=== PATIENT | male | born 1980 | race American Indian/Alaskan Native ===

== ENCOUNTER 2017-10-06 12:01 | Emergency (ER) | payer MEDICAID, OTHER ==
[2017-10-06 12:11] VITALS: BP 147/99
[2017-10-06 13:03] LABS: CHLORIDE,CL 106 mmol/L (101-111); SODIUM,NA 140 mmol/L (135-145)
--- NOTE | 2017-10-06 13:04 | EDM.PDOC ---
ED HPI GENERAL MEDICAL PROBLEM - General Chief Complaint: Respiratory Problem Stated Complaint: LUNGS FEEL WEIRD Time Seen by Provider: 10/06/17 12:50 Source of Information: Reports: Patient History Limitations: Reports: No Limitations - History of Present Illness INITIAL COMMENTS - FREE TEXT/NARRATIVE: This 36 yo male patient reports to the ED due to his "lungs feeling different" for the past week. The patient reports he works at [employer] and gets hot all day long. The patient reports he has been feeling short of breath throughout the week. The patient reports he has not been seen by his primary care facility for his current symptoms. Duration: Week(s): (1), Constant Location: Reports: Chest Quality: Reports: Other Severity: Mild Improves with: Reports: None Worsens with: Reports: None Associated Symptoms: Reports: No Other Symptoms - Related Data Allergies Allergy/AdvReac Type Severity Reaction Status Date / Time No Known Allergies Allergy Verified 10/06/17 12:08 Home Meds: Home Meds Lisinopril [Lisinopril] 5 mg PO DAILY 04/27/15 [History] Hydrochlorothiazide 25 mg PO DAILY 10/06/17 [History] Past Medical History Cardiovascular History: Reports: Hypertension Gastrointestinal History: Reports: Other (See Below) Other Gastrointestinal History: some type of hernia surgery as a baby Social & Family History - Family History Family Medical History: Noncontributory - Tobacco Use Smoking Status *Q: Never Smoker Second Hand Smoke Exposure: No - Caffeine Use Caffeine Use: Reports: Coffee - Alcohol Use Days Per Week of Alcohol Use: 1 Number of Drinks Per Day: 6 Total Drinks Per Week: 6 - Recreational Drug Use Recreational Drug Use: No - Living Situation & Occupation Living situation: Reports: with Family ED ROS GENERAL - Review of Systems Review Of Systems: ROS reveals no pertinent complaints other than HPI. ED EXAM, GENERAL - Physical Exam Exam: See Below Exam Limited By: No Limitations General Appearance: Alert, WD/WN, No Apparent Distress, Obese Eye Exam: Bilateral Eye: EOMI, Normal Inspection, PERRL Ears: Normal External Exam, Normal Canal, Hearing Grossly Normal, Normal TMs Nose: Normal Inspection, Normal Mucosa, No Blood Throat/Mouth: Normal Inspection, Normal Lips, Normal Teeth, Normal Gums, Normal Oropharynx, Normal Voice, No Airway Compromise Head: Atraumatic, Normocephalic Neck: Normal Inspection, Supple, Non-Tender, Full Range of Motion Respiratory/Chest: No Respiratory Distress, Lungs Clear, Normal Breath Sounds, No Accessory Muscle Use, Chest Non-Tender Cardiovascular: Normal Peripheral Pulses, Regular Rate, Rhythm, No Edema, No Gallop, No JVD, No Murmur, No Rub GI/Abdominal: Normal Bowel Sounds, Soft, Non-Tender, No Organomegaly, No Distention, No Abnormal Bruit, No Mass (Male) Exam: Deferred Rectal (Males) Exam: Deferred Back Exam: Normal Inspection, Full Range of Motion, NT Extremities: Normal Inspection, Normal Range of Motion, Non-Tender, Normal Capillary Refill, No Pedal Edema Neurological: Alert, Oriented, CN II-XII Intact, Normal Cognition, Normal Gait, Normal Reflexes, No Motor/Sensory Deficits Psychiatric: Normal Affect, Normal Mood Skin Exam: Warm, Dry, Intact, Normal Color, No Rash Lymphatic: No Adenopathy Course - Vital Signs Last Recorded V/S: Last Vital Signs Temp 35.5 C 10/06/17 12:08 Pulse 66 10/06/17 12:08 Resp 18 10/06/17 12:08 BP 147/99 H 10/06/17 12:08 Pulse Ox 100 10/06/17 12:08 - Orders/Labs/Meds Orders: Active Orders 24 hr Category Date Time Status Chest 2V [CR] Urgent Exams 10/06/17 12:29 Ordered CULTURE STREP A CONFIRMATION [] Stat Lab 10/06/17 12:33 Results STREP SCRN A RAPID W CULT CONF [] Stat Lab 10/06/17 12:33 Results Labs: Laboratory Tests 10/06/17 10/06/17 Range/Units 12:37 12:37 WBC 6.9 (5.0-10.0) 10^3/uL RBC 5.01 (4.6-6.2) 10^6/uL Hgb 14.1 (14.0-18.0) g/dL Hct 41.3 (40.0-54.0) % MCV 82.4 D (80-100) fL MCH 28.1 (27.0-34.0) pg MCHC 34.1 (33.0-35.0) g/dL Plt Count 204 (150-450) 10^3/uL Neut % (Auto) 55.1 (42.2-75.2) % Lymph % (Auto) 33.4 (20.5-50.1) % Dukes % (Auto) 7.3 (2-8) % Eos % (Auto) 3.9 H (1.0-3.0) % Baso % (Auto) 0.3 (0.0-1.0) % Sodium 140 (135-145) mmol/L Potassium 4.6 (3.6-5.0) mmol/L Chloride 106 (101-111) mmol/L Carbon Dioxide 26.0 D (21.0-31.0) mmol/L Anion Gap 12.6 BUN 11 (7-18) mg/dL Creatinine 0.6 (0.6-1.3) mg/dL Est Cr Clr Drug Dosing 174.05 mL/min Estimated GFR (MDRD) > 60 BUN/Creatinine Ratio 18.33 Glucose 109 H (74-105) mg/dL Calcium 8.9 (8.4-10.2) mg/dl Total Bilirubin 0.7 (0.2-1.0) mg/dL AST 70 H (10-42) IU/L ALT 61 H (10-60) IU/L Alkaline Phosphatase 133 H (42-121) IU/L Total Protein 8.2 (6.7-8.2) g/dl Albumin 3.9 (3.2-5.5) g/dl Globulin 4.3 Albumin/Globulin Ratio 0.91 Departure - Departure Time of Disposition: 13:08 Disposition: Home, Self-Care 01 Condition: Fair Clinical Impression: Viral URI - Discharge Information Instructions: Upper Respiratory Infection, Adult, [id number] Forms: ED Department Discharge Care Plan Goals: The patient was advised of the examination and lab results during the visit. The patient was encouraged to follow-up with his primary care facility or return to the emergency department for any additional symptoms or concerns. - My Orders Last 24 Hours: My Active Orders 10/06/17 12:29 Chest 2V [CR] Urgent 10/06/17 12:33 CULTURE STREP A CONFIRMATION [RM] Stat STREP SCRN A RAPID W CULT CONF [RM] Stat - Assessment/Plan Last 24 Hours: My Active Orders 10/06/17 12:29 Chest 2V [CR] Urgent 10/06/17 12:33 CULTURE STREP A CONFIRMATION [RM] Stat STREP SCRN A RAPID W CULT CONF [RM] Stat
== END 2017-10-06 13:30 | disposition home or self-care (01) ==
LOC: DL.ED 12:01
DX: J06.9 Acute upper respiratory infection, unspecified (principal); I10 Essential (primary) hypertension; Z79.899 Other long term (current) drug therapy
CPT/HCPCS: 36415; 80053; 85025; 87081; 87430; 87804; 99283

== ENCOUNTER 2025-01-26 11:37 | Emergency (ER) | payer BC, MEDICAID ==
[2025-01-26 12:54] LABS: BASOPHILS PERCENT AUTO 0.1 % (0.0-1.0); EOSINOPHILS PERCENT AUTO 1.6 % (1.0-3.0); HEMATOCRIT 38.2 % (40.0-54.0); HEMOGLOBIN 13.2 g/dL (14.0-18.0); LYMPHOCYTES PERCENT AUTO 13.5 % (20.5-50.1); MEAN CORPUSCULAR HEMOGLOBIN 26.7 pg (27.0-34.0); MEAN CORPUSCULAR HGB CONC 34.6 g/dL (33.0-35.0); MEAN CORPUSCULAR VOLUME 77.2 fL (80-100); NEUTROPHILS PERCENT AUTO 69.8 % (42.2-75.2); PLATELET COUNT,PLT 134 10^3/uL (150-450); RED BLOOD CELL COUNT 4.95 10^6/uL (4.6-6.2); WHITE BLOOD CELL COUNT,WBC 13.5 10^3/uL (5.0-10.0)
[2025-01-26 13:03] LABS: C-REACTIVE PROTEIN 10.82 ng/dL (<=0.50); CALCIUM 9.3 mg/dL (8.5-10.1); CREATININE 0.96 mg/dL (0.70-1.30); EST CRCL DRUG DOSING (CG) 100.33 mL/min; MAGNESIUM 1.7 mg/dL (1.8-2.4)
[2025-01-26] MEDS: Iopamidol 612 MG/ML 100 ML Bottle IVPUSH ONE (13:03)
[2025-01-26] MEDS: Dexamethasone 4 MG/ML SDV IVPUSH ONE (13:08)
[2025-01-26 13:10] LABS: LACTIC ACID 0.8 mmol/L (0.4-2.0)
[2025-01-26] MEDS: cefTRIAXone 2 GM Vial IVPUSH ONE (13:28)
[2025-01-26 14:08] VITALS: BP 130/90; PULSE 78
== END 2025-01-26 14:04 | disposition home or self-care (01) ==
LOC: DL.ED 11:37
DX: J02.0 Streptococcal pharyngitis (principal); I10 Essential (primary) hypertension; E11.9 Type 2 diabetes mellitus without complications
CPT/HCPCS: 36415; 70491; 80048; 83605; 83735; 85025; 86140; 87040; 87430; 96374; 96375; 99283; 99284; J0696; J1100; Q9967